=== PATIENT | male | born 1930 | race Caucasian/White ===

== ENCOUNTER 2017-02-07 11:28 | Outpatient (CLI) | payer MEDICARE, OTHER ==
[2013-01-07 16:54] VITALS: BP 128/59
[2017-02-07 12:11] LABS: APPEARANCE,URINE Cloudy (CLEAR); COLOR,URINE Yellow (YELLOW); OCCULT BLOOD,URINE Trace-intact (NEGATIVE); PH URINE 8.5 (5.0 - 8.0); UROBILINOGEN URINE 0.2 Eu (0.2-1.0)
[2017-02-07 12:14] LABS: BASOPHILS % 0.2 (0.0-1.5); EOSINOPHILS % 0.6 % (0.0-6.8); MEAN CORPUSCULAR HEMOGLOBIN 32.1 pg (28.0-34.0); MONOCYTES % 4.4 % (0.0-11.0); NEUTROPHILS # 5.4 # k/uL (1.4-7.7)
[2017-02-07 12:24] LABS: AMORPHOUS SEDIMENT,UR MODERATE (NEGATIVE)
[2017-02-07 12:29] LABS: eGFR (African) > 60; eGFR (Non-African) 51
--- NOTE | 2017-02-07 14:46 | Diagnostic Imaging Report ---
MARIA THOMAS [facility] [address] [facility] [address] [address] Report Submission Date: Feb 07, 2017 12:20:47 PM CDT Patient Study Name: RAYMUNDO JEFFERSON Date: Feb 07, 2017 11:54:09 AM CDT Modality Type: CR Gender: M Description: ABDOMEN : 32 Institution: [facility] Physician: MARIA THOMAS Abdomen - one-view Clinical history: Midline lower abdominal pain for 1 week. Findings: Examination of the abdomen in single AP view demonstrates gas in the colon and in some nondistended small bowel loops. There is no evidence of obstruction. Degenerative changes are seen in the visualized lumbar vertebrae and the hips. There are no unusual intra-abdominal calcifications. Impression: 1. 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 2. No obstruction. Electronically signed on Feb 07, 2017 12:20:47 PM CDT by: Jaden KNIGHT
== END 2017-02-07 11:30 ==
LOC: LAB 11:28
PROVIDERS: ATTEND Family Medicine
DX: R10.84 Generalized abdominal pain (principal)
CPT/HCPCS: 36415; 74000; 80053; 81002; 85025; 87086

== ENCOUNTER 2017-03-12 10:45 | Outpatient (CLI) | payer MEDICARE, OTHER ==
[2013-01-07 16:54] VITALS: BP 128/59
[2017-03-12 11:11] LABS: eGFR (African) > 60; eGFR (Non-African) > 60
== END 2017-03-12 10:46 ==
LOC: LABRHC 10:45
PROVIDERS: ATTEND Family Medicine
DX: M13.0 Polyarthritis, unspecified (principal); I10 Essential (primary) hypertension; R29.0 Tetany
CPT/HCPCS: 80053; 85651; 86038; 86431

== ENCOUNTER 2017-08-20 10:12 | Outpatient (CLI) | payer MEDICARE, OTHER ==
[2013-01-07 16:54] VITALS: BP 128/59
[2017-08-20 10:34] LABS: BASOPHILS % 0.4 (0.0-1.5); EOSINOPHILS % 2.3 % (0.0-6.8); MEAN CORPUSCULAR HEMOGLOBIN 30.4 pg (28.0-34.0); MEAN CORPUSCULAR VOLUME 94.8 fl (80.0-100.0); MONOCYTES % 4.3 % (0.0-11.0); NEUTROPHILS # 2.6 # k/uL (1.4-7.7)
[2017-08-20 11:03] LABS: eGFR (African) 57; eGFR (Non-African) 47
== END 2017-08-20 10:13 ==
LOC: LAB 10:12
PROVIDERS: ATTEND Family Medicine
DX: E11.9 Type 2 diabetes mellitus without complications (principal); I10 Essential (primary) hypertension
CPT/HCPCS: 36415; 80053; 80061; 83036; 85025

== ENCOUNTER 2017-11-21 10:41 | Outpatient (CLI) | payer MEDICARE, OTHER ==
[2013-01-07 16:54] VITALS: BP 128/59
== END 2017-11-21 10:42 ==
LOC: LAB 10:41
PROVIDERS: ATTEND Family Medicine
DX: E11.9 Type 2 diabetes mellitus without complications (principal)
CPT/HCPCS: 36415; 83036

== ENCOUNTER 2018-05-29 12:09 | Outpatient (CLI) | payer MEDICARE, OTHER ==
[2013-01-07 16:54] VITALS: BP 128/59
[2018-05-30 02:11] LABS: TOTAL PROTEIN 6.8 g/dL (6.0-8.5)
== END 2018-05-29 12:10 ==
LOC: LAB 12:09
PROVIDERS: ATTEND Family Medicine
DX: I10 Essential (primary) hypertension (principal); E11.9 Type 2 diabetes mellitus without complications
CPT/HCPCS: 80053; 80061; 83036

== ENCOUNTER 2019-02-14 13:47 | Outpatient (CLI) | payer MEDICARE, OTHER ==
[2013-01-07 16:54] VITALS: BP 128/59
[2019-02-14 14:16] LABS: MEAN CORPUSCULAR HEMOGLOBIN 32.8 pg (28.0-34.0)
[2019-02-14 14:17] LABS: BASOPHILS % 0.3 % (0.0-1.5); EOSINOPHILS % 0.9 % (0.0-6.8); MONOCYTES % 5.5 % (0.0-11.0); NEUTROPHILS # 5.2 # k/uL (1.4-7.7)
[2019-02-14 14:42] LABS: eGFR (Non-African) 37
== END 2019-02-14 13:50 ==
LOC: LAB 13:47
PROVIDERS: ATTEND Nurse Practitioner
DX: I10 Essential (primary) hypertension (principal); R00.1 Bradycardia, unspecified
CPT/HCPCS: 36415; 80053; 80061; 84443; 85025